=== PATIENT | female | born 1980 | race Caucasian/White ===

== ENCOUNTER 2018-01-21 05:40 | Emergency (ER) | payer BC ==
[2018-01-21] MEDS ORDERED: HYDROmorphone 2 MG/ML Syringe SUBCUT ONE (05:56)
--- NOTE | 2018-01-21 09:16 | ER ---
DATE OF SERVICE: 01/21/2018 HISTORY OF PRESENT ILLNESS: A 37-year-old lady here with complaints of a headache that she has had since Friday. She has had occasional episodes of dizziness. Her face felt a little tingly on both facial cheeks intermittently as well. She was seen in the clinic a few days ago and was diagnosed with a sinus infection and ear infection. She was put on Augmentin and meclizine. She states that her headache during the night has been as bad as 10/10. She has tried taking aspirin a couple of times, it only seems to help a little bit. The patient has not had any falls or injuries. She has not had any history of migraines. OBJECTIVE: GENERAL APPEARANCE: The patient is awake and alert. No obvious distress. She rates her current headache at 7/10. VITAL SIGNS: Reviewed. They are normal. HEENT: Eyes, pupils equal, round, and reactive to light. EOMs are intact. Head, normocephalic. Ears, TMs are slightly bulging with a pink color to the TMs with yellow fluid, to some degree behind the TMs as well. Nares are patent. Oral mucous membranes are moist. Tonsils not enlarged or injected. Pharynx, not inflamed. NECK: Supple with full and unguarded range of motion. LUNGS: Clear. CARDIAC: Heart sounds distinct without murmurs. SKIN: Warm and dry. LAB AND X-RAY: Head CT is negative. Labs include a CBC, CMP, and UA. They are also negative. The patient was given Dilaudid 1 mg subcu. She states that her headache is significantly better. She just has a mild headache at this time. DIAGNOSES: 1. Headache with a negative workup. 2. Acute otitis media recheck, partially resolved. TREATMENT PLAN: I advised the patient to finish her antibiotics. She is on Augmentin. She can take meclizine as needed for dizziness. I advised the patient to use Tylenol or ibuprofen for her headache. She can alternate between the 2 every 3 hours as needed and activity should be light duty activity today. Followup is p.r.n. CRS/MODL /[id number] STACIE
--- NOTE | 2018-01-22 07:27 | CT ---
DATE OF SERVICE: 01/21/18 CLINICAL DATA: Headache with dizziness. UNENHANCED BRAIN CT: Multislice acquisition through the brain without IV contrast was performed. No priors. No masses or mass effect. No intracranial hemorrhage. No evidence of acute or subacute infarct. No osseous abnormalities. IMPRESSION: Negative exam. [id number] [facility]
== END 2018-01-21 07:18 | disposition home or self-care (01) ==
LOC: LB.ED 05:40
DX: R51 Headache (principal); H66.93 Otitis media, unspecified, bilateral; R42 Dizziness and giddiness
CPT/HCPCS: 36415; 70450; 80053; 81001; 85025; 96372; 99284-25; J1170